=== PATIENT | male | born 1965 | race Caucasian/White ===

== ENCOUNTER 2022-07-14 14:29 | Emergency (ER) | payer MEDICAID ==
[~2022-07-14] VITALS: Ht 165.1 cm; Wt 70.0 kg
[2022-07-14] MEDS ORDERED: METOCLOPRAMIDE HCL 10MG/2ML VIAL IV ONE (15:00)
[2022-07-14] MEDS ORDERED: IOHEXOL-350 100 ML BOTTLE ONE (15:13)
[2022-07-14] MEDS ORDERED: DIPHENHYDRAMINE 50MG/ML VIAL IV ONE (15:30)
[2022-07-14] MEDS ORDERED: KETOROLAC 30MG/ML VIAL IV ONE (15:30)
[2022-07-14 15:37] LABS: BASOPHILS % 0.4 % (0.0-2.0); EOSINOPHILS % 2.6 % (0.0-5.0); HEMATOCRIT. 40.2 % (42.0-52.0); HEMOGLOBIN. 13.9 g/dL (14.0-18.0); LYMPHOCYTES % 20.1 % (20.0-50.0); MEAN CORPUSCULAR HEMOGLOBIN 31.3 pg (28.0-32.0); MEAN CORPUSCULAR VOLUME 90.4 fL (80.0-94.0); MEAN PLATELET VOLUME 8.1 fl (7.4-10.4); MONOCYTES % 8.1 % (2.0-8.0); NEUTROPHILS % 68.8 % (40.0-76.0); PLATELET 174 x1000/uL (130-400); RED BLOOD CELL COUNT 4.45 mill/uL (4.7-6.1); RED CELL DISTRIBUTION WIDTH 13.6 % (11.6-14.6)
[2022-07-14 15:47] LABS: CHLORIDE 104 mEq/L (98-107)
[2022-07-14 16:01] LABS: ETHANOL BLOOD < 10 mg/dL
[2022-07-14 16:32] LABS: CLARITY URINE CLEAR (CLEAR); COLOR URINE YELLOW (YELLOW); KETONES URINE NEGATIVE (NEGATIVE); LEUKOCYTE ESTERASE URINE NEGATIVE (NEGATIVE); NITRITE URINE NEGATIVE (NEGATIVE); OCCULT BLOOD URINE NEGATIVE (NEGATIVE); PH URINE 7.5 (4.5-8.0); PROTEIN URINE NEGATIVE (NEGATIVE); SPECIFIC GRAVITY URINE 1.038 (1.005-1.030)
[2022-07-14 16:48] LABS: *AMPHETAMINES SCREEN URINE NEGATIVE (NEGATIVE); *BARBITURATES SCREEN URINE NEGATIVE (NEGATIVE); *BENZODIAZEPINES SCREEN URINE NEGATIVE (NEGATIVE); *COCAINE SCREEN URINE PRESUMTIVE POSITIVE (NEGATIVE); CANNABINOID URINE SCREEN NEGATIVE (NEGATIVE); METHADONE URINE SCREEN NEGATIVE (NEGATIVE); OPIATES URINE SCREEN NEGATIVE (NEGATIVE); PHENCYCLIDINE URINE SCREEN NEGATIVE (NEGATIVE)
[2022-07-14 17:46] VITALS: BP 111/68
== END 2022-07-14 17:49 | disposition left against medical advice (07) ==
LOC: ER 14:29 → EDBEDREQ 17:07 → ER 17:49 → CANBEDREQ 07-15 03:12
DX: R20.0 Anesthesia of skin (principal); I25.2 Old myocardial infarction; F14.10 Cocaine abuse, uncomplicated; Z20.822 Contact with and (suspected) exposure to COVID-19
CPT/HCPCS: 36415; 70450; 70496; 70498; 71045; 80053; 80305; 80320; 81003; 82962; 84484; 85025; 87426; 93005; 96374; 96375; 99291; C9803; J1200; J1885; J2765; Q9967; G0480